=== PATIENT | female | born 1990 | race Caucasian/White ===

== ENCOUNTER 2020-03-30 21:38 | Emergency (ER) | payer MEDICAID ==
[~2020-03-30] VITALS: Ht 160 cm; Wt 74.4 kg
[2020-03-30 21:47] VITALS: Ht 160 cm; Wt 74.4 kg
[2020-03-30 22:11] LABS: BASOPHIL % 0.5 % (0-2); PLATELET COUNT 320 x10^3mcL (130-400); RED CELL DISTRIBUTION WIDTH 14.2 % (11.5-14.5)
[2020-03-30 22:36] LABS: CHLORIDE SERUM 105 mmol/L (98-107); CREATININE SERUM 0.7 mg/dL (0.6-1.0); GFR1 > 60 mL/min; GLUCOSE SERUM 95 mg/dL (74-106); POTASSIUM SERUM 3.8 mmol/L (3.5-5.1); SODIUM SERUM 140 mmol/L (136-145)
[2020-03-30 22:46] LABS: ALBUMIN 3.9 g/dL (3.4-5.0); ALKALINE PHOSPHATASE 59 U/L (46-116); ALT/SGPT 18 U/L (14-59); AMYLASE 47 U/L (25-115); AST/SGOT 9 U/L (15-37); BILIRUBIN TOTAL 0.19 mg/dL (0.20-1.00); CARBON DIOXIDE 25.4 mmol/L (21-32); LIPASE 157 IU/L (73-393); TOTAL PROTEIN, SERUM 7.5 g/dL (6.4-8.2)
[2020-03-31] VITALS: BP 106/52
== END 2020-03-31 00:04 | disposition home or self-care (01) ==
LOC: ED 21:38
PROVIDERS: Emergency Medicine
DX: R10.13 Epigastric pain (principal); R11.0 Nausea; R10.11 Right upper quadrant pain
CPT/HCPCS: 36415; J1885; Q0092; Q0162